=== PATIENT | female | born 1950 | race Caucasian/White ===

== ENCOUNTER 2018-07-23 05:23 | Observation (INO) ==
[2018-07-23] MEDS ORDERED: cefTRIAXone 1,000 MG VIAL ONE (05:57)
[2018-07-23] MEDS ORDERED: ALVIMOPAN 12 MG CAPSULE ONE (05:57)
[2018-07-23] MEDS ORDERED: SCOPOLAMINE 1.5 MG PATCH TRANSDERM ONE ×2 (06:26→06:40)
[2018-07-23] MEDS ORDERED: DIAZEPAM 5 MG TABLET PO ONE (06:26)
[2018-07-23] MEDS ORDERED: PANTOPRAZOLE 40 MG TABLET PO ONE ×2 (06:26→06:46)
[2018-07-23] MEDS ORDERED: cefTRIAXone 1,000 MG in SYRINGE 1 EACH IV ONE (06:30)
[2018-07-23] MEDS ORDERED: FAMOTIDINE 20 MG TABLET ONE (06:40)
[2018-07-23] MEDS ORDERED: DIAZEPAM 5 MG TABLET ONE (06:40)
[2018-07-23] MEDS: LACTATED RINGERS 1,000 ML IV SCH (06:47)
[2018-07-23] MEDS ORDERED: ALVIMOPAN 12 MG CAPSULE PO ONE (07:00)
[2018-07-23] MEDS ORDERED: ALBUTEROL 2.5 MG/3 ML NEB RESP TX PRN (10:47)
[2018-07-23] MEDS ORDERED: PROPOFOL 200 MG/20 ML VIAL IV ONE (11:09)
[2018-07-23] MEDS ORDERED: SEVOFLURANE 1 UNIT/15 MINUTE INH ONE (11:09)
[2018-07-23] MEDS ORDERED: SUFentanil 50 MCG/ML AMP ONE (11:10)
[2018-07-23] MEDS ORDERED: ROCURONIUM 100 MG/10 ML VIAL IV ONE (11:10)
[2018-07-23] MEDS ORDERED: ePHEDrine 50 MG/ML AMP ONE (11:12)
[2018-07-23] MEDS ORDERED: diphenhydrAMINE 50 MG/1 ML VIAL ONE (11:12)
[2018-07-23] MEDS ORDERED: DEXAMETHASONE 10 MG/1 ML VIAL ONE (11:12)
[2018-07-23] MEDS ORDERED: methylPREDNISolone SOD SUC 125 MG/2 ML VIAL ONE (11:12)
[2018-07-23] MEDS ORDERED: ONDANSETRON 4 MG/2 ML VIAL ONE ×2 (11:12→11:51)
[2018-07-23] MEDS ORDERED: GLYCOPYRROLATE 0.4 MG/2 ML VIAL ONE (11:12)
[2018-07-23] MEDS ORDERED: PHENYLEPHRINE 1 MG/10 ML SYRINGE IV ONE (11:13)
[2018-07-23] MEDS ORDERED: LACTATED RINGERS 2,000 ML IV ONE (11:13)
[2018-07-23] MEDS ORDERED: NEOSTIGMINE 10 MG/10 ML VIAL ONE (11:13)
[2018-07-23] MEDS: ONDANSETRON 4 MG/2 ML VIAL IV PRN ×3 (11:53→19:58)
[2018-07-23] MEDS ORDERED: HYDROmorphone 2 MG/1 ML VIAL ONE (11:54)
[2018-07-23] MEDS: HYDROmorphone 2 MG/1 ML VIAL IV PRN ×5 (11:55→22:02)
[2018-07-23] MEDS ORDERED: HYDROmorphone 2 MG/1 ML VIAL IV PRN (12:02)
[2018-07-23] MEDS ORDERED: PROMETHAZINE INJ 25 MG in SODIUM CHLORIDE 0.9% 50 ML IV ONE (13:17)
[2018-07-23] MEDS: DEXTROSE 5% NACL 0.45% 1,000 ML IV SCH (14:04)
[2018-07-23] MEDS: oxyCODONE/ACETAMINOPHEN 5-325 MG TABLET PO PRN ×2 (14:12→20:00)
[2018-07-24] MEDS: HYDROmorphone 2 MG/1 ML VIAL IV PRN ×3 (00:59→20:21)
[2018-07-24] MEDS: ONDANSETRON 4 MG/2 ML VIAL IV PRN ×2 (01:00→08:06)
[2018-07-24] MEDS: DEXTROSE 5% NACL 0.45% 1,000 ML IV SCH ×4 (01:01→20:23)
[2018-07-24 07:36] LABS: Basophils % 0.1 % (0.0-0.8); Hematocrit 38.2 VOL% (35.7-47.0); Hemoglobin 11.6 GM/DL (12.0-16.0); Immature Granulocytes % 0.6 %; Immature Granulocytes Absolute 0.05 #; Lymphocytes # 0.8 10*3/uL (1.4-4.0); Lymphocytes % 9.3 % (21.3-54.2); Mean Corpuscular HGB Conc 30.4 GM/DL (32-36); Mean Corpuscular Hemoglobin 26 PG (27-34); Mean Corpuscular Volume 84.5 FL (87-102); Mean Platelet Volume 9.5 FL (9.6-12.0); Monocytes # 0.8 10*3/uL (0.11-0.8); Monocytes % 9.7 % (1.7-12.7); Neutrophils # 6.8 10*3/uL (1.4-7.4); Neutrophils % 80.3 % (38.7-73.9); Platelet Count 191 T/CUMM (130-400); Red Blood Count 4.52 MC/CUMM (3.8-5.5); White Blood Count 8.4 T/CUMM (4-12)
[2018-07-24 07:57] LABS: Calcium 8.2 MG/DL (8.5-10.1); Osmolality,Calculated 282.1 MOS/KG (273-304)
[2018-07-24] MEDS: LACTATED RINGERS 1,000 ML IV SCH (09:52)
[2018-07-24] MEDS: FLUCONAZOLE 100 MG TABLET PO SCH (09:52)
[2018-07-24] MEDS: oxyCODONE/ACETAMINOPHEN 5-325 MG TABLET PO PRN ×3 (09:53→18:03)
[2018-07-24] MEDS: LEVOTHYROXINE 112 MCG TABLET PO SCH (09:53)
[2018-07-25] MEDS: oxyCODONE/ACETAMINOPHEN 5-325 MG TABLET PO PRN (01:02)
[2018-07-25] MEDS: HYDROmorphone 2 MG/1 ML VIAL IV PRN (02:43)
[2018-07-25] MEDS: DEXTROSE 5% NACL 0.45% 1,000 ML IV SCH (06:15)
[2018-07-25] MEDS: LEVOTHYROXINE 112 MCG TABLET PO SCH (10:07)
[2018-07-25] MEDS: FLUCONAZOLE 100 MG TABLET PO SCH (10:07)
[2018-07-25 11:42] VITALS: BP 113/59
== END 2018-07-25 12:59 | disposition home or self-care (01) ==
LOC: N.RAD 05:23 → N.SDSINP 05:23 → INTOOBSV 10:40 → N.5E 10:40
PROVIDERS: ADMIT Urology; ATTEND Urology